=== PATIENT | male | born 2000 | race Caucasian/White ===

== ENCOUNTER 2018-05-07 10:32 | Emergency (ER) | payer MEDICAID, OTHER ==
[~2018-05-07] VITALS: Ht 175.3 cm; Wt 63.5 kg
[~2018-05-07 10:32] MED LIST: CETI-32 PO
[2018-05-07 10:34] VITALS: BP 157/75
--- NOTE | 2018-05-07 11:34 | NUR ---
CRITICAL RADIOLOGY REPORT RECEIVED AT THIS TIME. FX TO HEAD OF FIBULA. ER MD NOTIFIED.
[2018-05-07] MEDS ORDERED: IBUPROFEN 600 MG TAB PO ONE (12:10)
--- NOTE | 2018-05-07 12:14 | NUR ---
ASSUMED PATIENT CARE, NURSING ASSESSMENT COMPLETED.
--- NOTE | 2018-05-07 12:26 | NUR ---
PLACED A KNEE IMMOBILIZER ON PT'S LEFT KNEE, WELL SIZED PT UP FOR CRUTCHES. PT STATED HE HAS NEVER USED CRUTCHES BEFORE, I FOLLOWED UP WITH ONE ON ONE INSTRUCTION ON HOW TO USE THEM.
--- NOTE | 2018-05-07 12:56 | NUR ---
DISPO AND MEDICAL DECISION MAKING, DC HOME WITH INSTRUCTIONS ON CRUTCHES USE AND APPOINTMENT WITH [facility]THO. ALL INSTRUCTIONS UNDERSTOOD BY PARENT AND PATIENT WELL. VS WNL, NO DISTRESS.
== END 2018-05-07 12:56 | disposition home or self-care (01) ==
LOC: MED 10:32
DX: S82.832A Other fracture of upper and lower end of left fibula, initial encounter for closed fracture (principal); Z79.899 Other long term (current) drug therapy; X58.XXXA Exposure to other specified factors, initial encounter; Y93.39 Activity, other involving climbing, rappelling and jumping off; Y92.89 Other specified places as the place of occurrence of the external cause; Y99.8 Other external cause status
CPT/HCPCS: 29505; 73562; 73610; 99283

== ENCOUNTER 2018-12-30 00:49 | Emergency (ER) | payer MEDICAID, OTHER ==
[~2018-12-30] VITALS: Ht 175.3 cm; Wt 63.5 kg
[2018-12-30 01:01] VITALS: BP 130/78
[2018-12-30] MEDS ORDERED: NACL 0.9% 1,000 ML IV ONE (01:10)
[2018-12-30 01:36] LABS: BASOPHILS % (AUTO) 0.6 % (0.0-2.0); EOSINOPHILS # (AUTO) 0.3 K/uL (0-0.4); EOSINOPHILS % (AUTO) 4.1 % (0.0-4.0); HEMATOCRIT 49.5 % (36-52); HEMOGLOBIN 16.6 g/dL (12.0-18.0); LYMPHOCYTES # (AUTO) 1.3 K/uL (2.0-11.5); MEAN CORPUSCULAR HEMOGLOBIN 32 pg (27-31); MEAN CORPUSCULAR HGB CONC 34 g/dL (33-37); MEAN CORPUSCULAR VOLUME 94.2 fL (80-94); MONOCYTES # (AUTO) 0.4 K/uL (0.8-1.0); MONOCYTES % (AUTO) 5.4 % (1.7-9.3); NEUTROPHILS # (AUTO) 5.5 K/uL (1.8-7.7); NEUTROPHILS % (AUTO) 72.9 % (42.2-75.2); PLATELET COUNT (AUTO) 159 K/uL (140-450); RED BLOOD CELL COUNT(AUTO) 5.25 MIL/uL (4.20-6.10); RED CELL DISTRIBUTION WIDTH 13.1 % (11.6-13.7); WHITE BLOOD COUNT (AUTO) 7.5 K/uL (4.5-11.0)
[2018-12-30 01:52] LABS: ANION GAP 10.8 (8-16); CREATININE 1.1 mg/dL (0.7-1.3); POTASSIUM 3.8 mmol/L (3.5-5.1)
[2018-12-30 01:56] LABS: TOTAL BILIRUBIN 0.5 mg/dL (0.0-1.0)
[2018-12-30 01:57] LABS: ALBUMIN 4.3 g/dL (3.4-5.0)
[2018-12-30 02:30] VITALS: BP 123/65
== END 2018-12-30 02:30 | disposition home or self-care (01) ==
LOC: MED 00:49
DX: A09 Infectious gastroenteritis and colitis, unspecified (principal); F17.200 Nicotine dependence, unspecified, uncomplicated; Z79.899 Other long term (current) drug therapy
CPT/HCPCS: 36415; 80053; 85025; 96360; 99283; J7030

== ENCOUNTER 2019-01-29 22:27 | Emergency (ER) | payer OTHER ==
[~2019-01-29] VITALS: Ht 175.3 cm; Wt 60.3 kg
[2019-01-29 22:36] VITALS: BP 111/64
--- NOTE | 2019-01-29 22:39 | NUR ---
TO LOBBY A/W BED AMBULATORY
--- NOTE | 2019-01-29 23:36 | NUR ---
PT AMBULATED TO BED 09
--- NOTE | 2019-01-29 23:41 | NUR ---
18 Y/O M PRESENTS TO ER C/O ABDOMINAL PAIN X 2 WEEKS. PER PT HE HAS BEEN DEALING WITH ABDOMINAL ISSUES FOR ABOUT 3 MONTHS. PT REPORTS HAVING BRIGHT RED STOOLS AND SOMETIMES BLACK STOOLS. PT HAS MILD NAUSEA. PAIN LEVEL 5/10, "FEELS UNCOMFORTABLE." PT ALSO STATES "I FEEL LIKE I HAVE ALOT OF STOMACH ACID BUILD UP." PT WAS SEEN AT URGENT CARE TODAY AND WAS REFERRED TO ER FOR FURTHER EVALUATION AND TREATMENT. DENIES V/D. ALLERGIES: NKA MED HX: NONE
[2019-01-30 00:31] LABS: BASOPHILS # (AUTO) 0.1 K/uL (0.00-0.22); BASOPHILS % (AUTO) 1.1 % (0.0-2.0); EOSINOPHILS # (AUTO) 0.1 K/uL (0-0.4); EOSINOPHILS % (AUTO) 1.8 % (0.0-4.0); HEMATOCRIT 46.5 % (36-52); HEMOGLOBIN 15.7 g/dL (12.0-18.0); LYMPHOCYTES % (AUTO) 31.3 % (20.5-51.1); MEAN CORPUSCULAR HEMOGLOBIN 32 pg (27-31); MEAN CORPUSCULAR HGB CONC 34 g/dL (33-37); MEAN CORPUSCULAR VOLUME 93.5 fL (80-94); MONOCYTES # (AUTO) 0.5 K/uL (0.8-1.0); MONOCYTES % (AUTO) 8.5 % (1.7-9.3); NEUTROPHILS # (AUTO) 3.6 K/uL (1.8-7.7); NEUTROPHILS % (AUTO) 57.3 % (42.2-75.2); PLATELET COUNT (AUTO) 143 K/uL (140-450); RED BLOOD CELL COUNT(AUTO) 4.98 MIL/uL (4.20-6.10); RED CELL DISTRIBUTION WIDTH 13.4 % (11.6-13.7); WHITE BLOOD COUNT (AUTO) 6.4 K/uL (4.5-11.0)
[2019-01-30 00:35] LABS: BARBITURATE, URINE NEG. ng/ml (NEG <=200); BENZODIAZEPINE, URINE NEG. ng/mL (NEG <=200); CANNABINOID, URINE NEG. ng/mL (NEG <=50); COCAINE, URINE NEG. ng/mL (NEG <=300); OPIATE, URINE NEG. ng/mL (NEG <=2000); PHENCYCLIDINE SCREEN,URINE NEG. ng/mL (NEG <=25)
[2019-01-30 00:47] LABS: ANION GAP 12.4 (8-16); CARBON DIOXIDE 29.4 mmol/L (21-32); CHLORIDE 103 mmol/L (98-107); GFR ARICAN-AMERICAN 123 mL/min (>90); GLUCOSE 82 mg/dL (74-106); POTASSIUM 3.8 mmol/L (3.5-5.1); SODIUM SERUM 141 mmol/L (136-145); UREA NITROGEN, BLOOD 19 mg/dL (7-18)
--- NOTE | 2019-01-30 00:52 | NUR ---
PATIENT TAKEN TO CT
[2019-01-30 00:54] LABS: ACETAMINOPHEN < 0.5 ug/ml (10-30); ALBUMIN 4.1 g/dL (3.4-5.0); ASPARTATE AMINOTRANSFERASE 19 U/L (15-37); SALICYLATE < 2.8 mg/dL (2.8-20.0); TOTAL BILIRUBIN 0.3 mg/dL (0.0-1.0)
--- NOTE | 2019-01-30 01:07 | NUR ---
PATIENT BACK FROM CT.
[2019-01-30 01:25] VITALS: BP 110/60
--- NOTE | 2019-01-30 01:32 | NUR ---
PATIENT IN STABLE CONDITION, VSS, DENIES PAIN AT THIS TIME.
== END 2019-01-30 02:20 | disposition home or self-care (01) ==
LOC: MED 22:27
DX: R10.9 Unspecified abdominal pain (principal); Z79.899 Other long term (current) drug therapy
CPT/HCPCS: 36415; 74176; 80053; 80305; 85025; 99284; G0480; G0482

== ENCOUNTER 2020-10-06 11:47 | Emergency (ER) | payer OTHER ==
[~2020-10-06] VITALS: Ht 175.3 cm; Wt 56.7 kg
[~2020-10-06 11:47] MED LIST changes: -CETI-32 PO; +CETI10TA81 PO
[2020-10-06 11:53] VITALS: BP 114/75
--- NOTE | 2020-10-06 11:57 | NUR ---
ERMA GODDARD EVALUATING PT IN [facility]
[2020-10-06] MEDS ORDERED: ONDANSETRON 4 MG ODT PO ONE (12:05)
--- NOTE | 2020-10-06 12:20 | NUR ---
PT NO LONGER IN [facility]. ATTEMPTED TO CALL/FIND PT, NO ANSWER IN LOBBY. ERMA GODDARD MADE AWARE
--- NOTE | 2020-10-06 12:30 | NUR ---
UNABLE TO FIND PT AFTER NUMEROUS ATTEMPTS, BELIEVED TO HAVE LEFT FACILITY WITHOUT NOTIFYING STAFF. ERMA GODDARD MADE AWARE
[2020-10-06 12:31] VITALS: BP 114/75
--- NOTE | 2020-10-06 12:31 | NUR ---
PATIENT ELOPED FROM FACILITY. DISCHARGE INSTRUCTIONS NOT GIVEN TO PATIENT. ERMA GODDARD NOTIFIED.
== END 2020-10-06 12:31 | disposition left against medical advice (07) ==
LOC: MED 11:47
DX: R11.2 Nausea with vomiting, unspecified (principal); R10.9 Unspecified abdominal pain
CPT/HCPCS: 99283

== ENCOUNTER 2021-01-19 13:43 | Emergency (ER) | payer OTHER ==
[~2021-01-19] VITALS: Ht 172.7 cm; Wt 59.0 kg
[2021-01-19 14:30] VITALS: BP 124/72
--- NOTE | 2021-01-19 15:15 | NUR ---
ERMA GODDARD PERFORMED SUTURE REMOVAL
[2021-01-19 15:26] VITALS: BP 124/72
--- NOTE | 2021-01-19 15:26 | NUR ---
No nursing interventions implemented. Patient discharged with v/s stable. Written and verbal after care instructions given and explained. Patient alert, oriented and verbalized understanding of instructions. Ambulatory with steady gait. All questions addressed prior to discharge. ID band removed. Patient advised to follow up with PMD. Opportunity to ask questions provided and answered.
== END 2021-01-19 15:26 | disposition home or self-care (01) ==
LOC: MED 13:43
DX: Z48.02 Encounter for removal of sutures (principal); S01.111D Laceration without foreign body of right eyelid and periocular area, subsequent encounter; Z79.899 Other long term (current) drug therapy; X58.XXXD Exposure to other specified factors, subsequent encounter
CPT/HCPCS: 99281